=== PATIENT | male | born 1945 | race Caucasian/White ===

== ENCOUNTER 2019-12-24 16:21 | Emergency (ER) | payer MEDICARE ==
[~2019-12-24] VITALS: Ht 172.7 cm; Wt 102.3 kg
[~2019-12-24 16:21] MED LIST: ACID1TAB7 PO; APIX5TAB PO; ATOR20TA37 PO; CEPH-376 PO; LIPITOR PO; PANT40TA6 PO; PRILOSEC PO; ZOLP10TA PO
--- NOTE | 2019-12-24 16:55 | NUR ---
THIS IS A 74 YO MALE COMING IN FROM [facility]RGENT [facility]ARE WITH C/O LEFT ARM PAIN/ NECK PAIN FOR 2-3 DAYS, "I WAS WORKING OUT IN THE YARD AND I THINK I JUST OVER DID IT". EKG DONE AT URGENT CARE, AND THEY REFERRED PATIENT HERE FOR CHANGES IN EKG SINCE LAST ONE DONE. 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 DENIES SOB/N/V. DENIES ANY OTHER COMPLAINTS AT THIS TIME. ABLE TO MOVE ALL EXTREMITIES WELL. CALL LIGHT IN REACH
--- NOTE | 2019-12-24 17:55 | NUR ---
Patient given discharge instructions and they have confirmed that they understand the instructions. Patient ambulatory with steady gait.
[2019-12-24 17:56] VITALS: BP 142/85
== END 2019-12-24 18:05 | disposition home or self-care (01) ==
LOC: ED 16:53
DX: M77.8 Other enthesopathies, not elsewhere classified (principal)
CPT/HCPCS: 93005; 99283

== ENCOUNTER → 2020-04-14 | Outpatient (CLI) | payer MEDICARE ==
[~2020-04-14] MED LIST changes: +ASCO1500 PO; +AZIT500T10 PO; +CEFD300C37 PO; +CHOL500045 PO; +HYDR-3248 PO; +ZINC220C7 PO
== END | disposition home or self-care (01) ==
LOC: RAD 09:38
PROVIDERS: ATTEND Family Medicine
DX: I82.412 Acute embolism and thrombosis of left femoral vein (principal)

== ENCOUNTER 2020-05-13 13:57 | Emergency (ER) | payer MEDICARE ==
[~2020-05-13] VITALS: Ht 172.7 cm; Wt 93.1 kg
[2020-05-13 14:01] VITALS: BP 121/79
--- NOTE | 2020-05-13 15:26 | NUR ---
Note devan in [facility] - 05/13/20 at 1527 by JOJO pulmonary physical therapist note: Pt called for room, no answer.
--- NOTE | 2020-05-13 15:27 | NUR ---
optician note: Pt to room from lobby.
--- NOTE | 2020-05-13 15:45 | NUR ---
AT BEDSIDE FOR ASSESSMENT.
== END 2020-05-13 16:10 | disposition home or self-care (01) ==
LOC: ED 15:37
DX: S00.03XA Contusion of scalp, initial encounter (principal); S09.90XA Unspecified injury of head, initial encounter; Z79.01 Long term (current) use of anticoagulants; E78.5 Hyperlipidemia, unspecified; Z86.718 Personal history of other venous thrombosis and embolism; Z90.89 Acquired absence of other organs; Z90.49 Acquired absence of other specified parts of digestive tract; Z87.891 Personal history of nicotine dependence; X50.0XXA Overexertion from strenuous movement or load, initial encounter; Y93.89 Activity, other specified; Y92.009 Unspecified place in unspecified non-institutional (private) residence as the place of occurrence of the external cause; Y99.8 Other external cause status
CPT/HCPCS: 70450; 99284

== ENCOUNTER 2020-05-17 13:33 | Emergency (ER) | payer MEDICARE ==
[~2020-05-17] VITALS: Ht 172.7 cm; Wt 93.0 kg
--- NOTE | 2020-05-17 14:01 | NUR ---
PT TO ROOM 6 W/ C/O DIZZINESS STARTED 3 DAYS AGO AND SUSTAINS. PT STATS HE WAS SEEN HERE 3 DAYS AGO BECAUSE OF GLF SECONDARY TO DIZZINESS. PT RESTING ON GURNEW HOPE. NADN. MONITORS APPLIED. VSS. WARM BLANKET PROVIDED.
--- NOTE | 2020-05-17 14:45 | NUR ---
PT RESTING ON GURNEY. NADN. BIANCHI.
[2020-05-17] MEDS ORDERED: SODIUM CHLORIDE FLUSH 10ML SYR IVF ONE ×2 (15:00)
[2020-05-17] MEDS ORDERED: SODIUM CHLORIDE 0.9% 1,000ML IVBOLUS ONE (15:00)
[2020-05-17] MEDS ORDERED: MECLIZINE CHEWABLE 25 MG TAB PO ONE (15:00)
[2020-05-17] MEDS ORDERED: MECLIZINE CHEWABLE 25 MG TAB ONE (15:11)
[2020-05-17 15:20] LABS: BASOPHILS % (AUTO) 1 % (0-1); EOSINOPHILS % (AUTO) 1 % (1-7); LYMPHOCYTES % (AUTO) 31 % (22-44); MEAN CORPUSCULAR HEMOGLOBIN 30.4 pg (27.5-34.5); MEAN CORPUSCULAR HGB CONC 33.2 g/dL (33.2-36.2); MEAN PLATELET VOLUME 7.1 fL (7.4-10.4); MONOCYTES % (AUTO) 8 % (2-9); NEUTROPHILS % (AUTO) 59 % (42-75); PLATELET COUNT 268 x10^3/uL (130-400); RED BLOOD COUNT 4.72 x10^6/uL (4.38-5.82); RED CELL DISTRIBUTION WIDTH 15.2 % (9.4-14.8)
[2020-05-17 15:24] LABS: MD NO
[2020-05-17 15:29] LABS: ALBUMIN 3.3 g/dL (3.4-5.0); ANION GAP 3 mmol/L (5-15); CALCIUM 8.9 mg/dL (8.5-10.1); CHLORIDE 110 mmol/L (98-107); CREATININE 0.68 mg/dL (0.7-1.3)
[2020-05-17 15:56] VITALS: BP 146/71
--- NOTE | 2020-05-17 15:56 | NUR ---
PT RESTING ON GURNEY. NADN. CONDONS. PT STATES MILD IMPROVEMENT FROM DIZZINESS AFTER ANTIVERT MEDICATION BUT PT REMAINS DIZZY.
== END 2020-05-17 16:34 | disposition home or self-care (01) ==
LOC: ED 14:12
DX: R42 Dizziness and giddiness (principal); R94.31 Abnormal electrocardiogram [ECG] [EKG]; E78.00 Pure hypercholesterolemia, unspecified; K21.9 Gastro-esophageal reflux disease without esophagitis; E78.5 Hyperlipidemia, unspecified; Z86.39 Personal history of other endocrine, nutritional and metabolic disease
CPT/HCPCS: 36415; 80048; 82040; 85025; 93005; 96360; 99284; J7030